=== PATIENT | female | born 1995 | race Caucasian/White ===

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

== ENCOUNTER 2017-02-24 16:15 | Emergency (ER) | payer OTHER ==
[2017-02-24 16:31] VITALS: BP 127/65
--- NOTE | 2017-02-24 16:36 | UC ---
Respiratory Complaint HPI - HPI Summary HPI Summary: 21 year old female presents with complains of sinus congestion and sore throat. - History of Current Complaint Chief Complaint: UCRespiratory Stated Complaint: COUGH Time Seen by Provider: 02/24/17 16:35 Hx Obtained From: Patient Hx Last Menstrual Period: Apr 2016 Onset/Duration: Sudden Onset Severity Initially: Moderate Severity Currently: Moderate Pain Scale Used: 0-10 Numeric - 5 Character: Cough: Nonproductive Associated Signs And Symptoms: Positive: Negative - Allergies/Home Medications Allergies/Adverse Reactions: Allergies Allergy/AdvReac Type Severity Reaction Status Date / Time No Known Allergies Allergy Verified 05/07/16 14:58 Home Medications: Home Medications Dextromethorphan-Phenylephrine [Day Time Multi-Symptom Co 10-5-325 mg] 1 cap PO 02/24/17 [History Confirmed 02/24/17] Ibuprofen [Advil] 600 mg PO 02/24/17 [History] PMH/Surg Hx/FS Hx/Imm Hx Previously Healthy: Yes Other History Of: Negative For: HIV, Hepatitis B, Hepatitis C, Anticoagulant Therapy - Surgical History Surgical History: Yes Surgery Procedure, Year, and Place: [place] teeth - Family History Known Family History: Negative: Cardiac Disease, Hypertension - Social History Alcohol Use: None Substance Use Type: None Smoking Status (MU): Light Every Day Tobacco Smoker Household Exposure Type: Cigarettes - Immunization History Most Recent Influenza Vaccination: NONE Review of Systems Constitutional: Negative Skin: Negative Eyes: Negative ENT: Sore Throat, Nasal Discharge, Sinus Congestion, Sinus Pain/Tenderness Respiratory: Negative Cardiovascular: Negative Gastrointestinal: Negative Genitourinary: Negative Motor: Negative Neurovascular: Negative Musculoskeletal: Negative Neurological: Negative Psychological: Negative All Other Systems Reviewed And Are Negative: Yes Physical Exam Triage Information Reviewed: Yes Vital Signs: Initial Vital Signs Temp 37.3 C 02/24/17 16:26 Pulse 92 02/24/17 16:26 Resp 18 02/24/17 16:26 BP 127/65 02/24/17 16:26 Pulse Ox 100 02/24/17 16:26 Vital Signs Reviewed: Yes Eye Exam: Normal ENT: Positive: Pharyngeal erythema, Nasal congestion, Nasal drainage, Sinus tenderness Dental Exam: Normal Neck exam: Normal Neck: Positive: 1 Respiratory Exam: Normal Cardiovascular Exam: Normal Abdominal Exam: Normal Musculoskeletal Exam: Normal Neurological Exam: Normal Psychological Exam: Normal Skin Exam: Normal UC Diagnostic Evaluation - Laboratory O2 Sat by Pulse Oximetry: 100 Respiratory Course/Dx - Differential Dx/Diagnosis Provider Diagnoses: allergic rhinitis. sinusitis Discharge - Discharge Plan Condition: Stable Disposition: HOME Prescriptions: Amoxicillin PO (*) [Amoxicillin 875 MG (*)] 875 mg PO BID #20 tab LoraTADine TAB(NF) [Claritin 10 MG TAB(NF)] 10 mg PO DAILY #30 tab Magic M W2 Darren/Maal/Nyst/Lido* 5 ml SWISH SPIT QID PRN #120 ml PRN Reason: Pain Patient Education Materials: Allergic Rhinitis (ED) Referrals: Mg Cordero MD [Primary Care Provider] -
== END 2017-02-24 16:51 | disposition home or self-care (01) ==
LOC: UCEAST 16:15
DX: J30.9 Allergic rhinitis, unspecified (principal); J32.9 Chronic sinusitis, unspecified; Z72.0 Tobacco use
CPT/HCPCS: 99212; G0463

== ENCOUNTER 2017-06-28 13:33 | Emergency (ER) | payer OTHER ==
[2017-06-28 13:50] VITALS: BP 125/68
--- NOTE | 2017-06-28 13:54 | UC ---
Respiratory Complaint HPI - History of Current Complaint Chief Complaint: UCGeneralIllness Stated Complaint: VOMITING Time Seen by Provider: 06/28/17 13:53 Hx Last Menstrual Period: 01/17 Pain Intensity: 5 - Allergies/Home Medications Allergies/Adverse Reactions: Allergies Allergy/AdvReac Type Severity Reaction Status Date / Time No Known Allergies Allergy Verified 06/28/17 13:50 Home Medications: Home Medications NK [No Home Medications Reported] 06/28/17 [History Confirmed 06/28/17] PMH/Surg Hx/FS Hx/Imm Hx Other History Of: Negative For: HIV, Hepatitis B, Hepatitis C, Anticoagulant Therapy - Surgical History Surgical History: Yes Surgery Procedure, Year, and Place: [place] teeth - Family History Known Family History: Negative: Cardiac Disease, Hypertension - Social History Alcohol Use: None Substance Use Type: None Smoking Status (MU): Light Every Day Tobacco Smoker Household Exposure Type: Cigarettes - Immunization History Most Recent Influenza Vaccination: NONE Physical Exam Vital Signs: Initial Vital Signs Temp 97.6 F 06/28/17 13:45 Pulse 66 06/28/17 13:45 Resp 18 06/28/17 13:45 BP 125/68 06/28/17 13:45 Pulse Ox 100 06/28/17 13:45 UC Diagnostic Evaluation - Laboratory O2 Sat by Pulse Oximetry: 100 Discharge - Discharge Plan Referrals: Denis Damon NP [Primary Care Provider] -
[2017-06-28] MEDS ORDERED: Ondansetron ODT TAB* 4 MG PO ONE (14:46)
--- NOTE | 2017-06-28 14:58 | UC ---
Nausea/Vomiting/Diarrhea HPI - HPI Summary HPI Summary: Patient accompanied by female partner, states she has been nauseated for about 6 days with nasal congestion, facial congestion and low grade fever. She states she is able to tolerate fluids and has been sipping water without vomiting, but last time she vomited was with food about 2-3 hr ago. She denies abdominal pain or dysuria. - History of Current Complaint Chief Complaint: UCGeneralIllness Stated Complaint: VOMITING Time Seen by Provider: 06/28/17 13:53 Hx Obtained From: Patient Hx Last Menstrual Period: 01/17 ?: No Onset/Duration: Gradual Onset, Lasting Days Severity Initially: Mild Severity Currently: Moderate Pain Intensity: 5 Aggravating Factor(s): Food Nausea/Vomiting Presence: Nauseated, Vomiting Vomiting Frequency: At Meal Time Nausea/Vomiting Duration: 0-12 hours Vomiting Characteristics: Retching Diarrhea Presence: No - Risk Factors Influenza Risk Factors: Negative Surgical Obstruction Risk Factor(s): Negative - Allergies/Home Medications Allergies/Adverse Reactions: Allergies Allergy/AdvReac Type Severity Reaction Status Date / Time No Known Allergies Allergy Verified 06/28/17 13:50 PMH/Surg Hx/FS Hx/Imm Hx Previously Healthy: Yes Other History Of: Negative For: HIV, Hepatitis B, Hepatitis C, Anticoagulant Therapy - Surgical History Surgical History: Yes Surgery Procedure, Year, and Place: [place] teeth - Family History Known Family History: Negative: Cardiac Disease, Hypertension - Social History Alcohol Use: None Substance Use Type: None Smoking Status (MU): Light Every Day Tobacco Smoker Household Exposure Type: Cigarettes - Immunization History Most Recent Influenza Vaccination: NONE Review of Systems Constitutional: Fever ENT: Nasal Discharge, Sinus Congestion Gastrointestinal: Vomiting, Nausea Genitourinary: Negative All Other Systems Reviewed And Are Negative: Yes Physical Exam Triage Information Reviewed: Yes Appearance: Well-Appearing, No Pain Distress, Well-Nourished Vital Signs: Initial Vital Signs Temp 97.6 F 06/28/17 13:45 Pulse 66 06/28/17 13:45 Resp 18 06/28/17 13:45 BP 125/68 06/28/17 13:45 Pulse Ox 100 06/28/17 13:45 Vital Signs Reviewed: Yes Eyes: Positive: Conjunctiva Clear ENT: Positive: Hearing grossly normal, Pharynx normal, TMs normal, Uvula midline Neck: Positive: Supple, Nontender, No Lymphadenopathy Respiratory: Positive: Chest non-tender, Lungs clear, Normal breath sounds, No respiratory distress Cardiovascular: Positive: RRR, No Murmur, Pulses Normal, Brisk Capillary Refill Abdomen Description: Positive: Nontender, No Organomegaly, Soft Bowel Sounds: Positive: Present Naus/Vom/Diarrhea Course/Dx - Course Course Of Treatment: UA shows dehydration, influenza was negative. Possibly viral syndrome, continue oral hydration with rehydrating electrolyte solutions, broths, diluted juice and avoid caffeine, dairy. introduce solids gradually as tolerated. Take zofran as needed for nausea and prilosec daily for a maximum of 14 days. F/u with PCP - Differential Dx/Diagnosis Condition At Discharge: Stable Discharge - Sign-Out/Discharge Documenting (check all that apply): Discharge/Admit/Transfer - Discharge Plan Condition: Stable Disposition: HOME Prescriptions: Omeprazole CAP* [Prilosec CAP* 20 MG] 20 mg PO DAILY #14 cap. Ondansetron ODT TAB* [Zofran 4 MG Odt TAB*] 4 mg PO Q6H PRN #20 tab.odt PRN Reason: Nausea Patient Education Materials: Ondansetron (By mouth), Dehydration (ED), Gastroenteritis (ED) Referrals: Denis Damon NP [Primary Care Provider] - - Billing Disposition and Condition Condition: STABLE Disposition: HOME
== END 2017-06-28 15:03 | disposition home or self-care (01) ==
LOC: UCEAST 13:33
DX: R50.9 Fever, unspecified (principal); R09.81 Nasal congestion; R11.2 Nausea with vomiting, unspecified; F17.210 Nicotine dependence, cigarettes, uncomplicated; E86.0 Dehydration
CPT/HCPCS: 81003; 87502; 99212; A9270-GY; G0463

== ENCOUNTER 2018-01-24 21:25 | Emergency (ER) | payer OTHER ==
--- NOTE | 2018-01-24 22:06 | ED ---
Upper Extremity Pain - HPI Summary HPI Summary: The patient is a 22 y/o female presenting to [facility] c/o L fifth finger pain since 2 days ago worsened today. She accidentally dropped a shelf on the affected finger. She notes pain, swelling and difficulty using the same.She notes pain rated 7/10 in severity. Home Medications Medication Instructions Recorded Confirmed Type Omeprazole CAP* [Prilosec CAP* 20 20 mg PO DAILY #14 cap.dr 06/28/17 Rx MG] Ondansetron ODT TAB* [Zofran 4 MG 4 mg PO Q6H PRN #20 tab.odt 06/28/17 Rx Odt TAB*] - History of Current Complaint Chief Complaint: EDExtremityUpper Stated Complaint: LEFT HAND INJURY Time Seen by Provider: 01/24/18 21:55 Hx Obtained From: Patient Hx Last Menstrual Period: 01/17 Mechanism Of Injury: Blunt Trauma Onset/Duration: Started Days Ago - 2 days, Still Present Timing: Constant Severity Initially: Moderate Severity Currently: Moderate Pain Location: Finger - L fifth finger Aggravating Factor(s): Movement Alleviating Factor(s): Nothing - Allergies/Home Medications Allergies/Adverse Reactions: Allergies Allergy/AdvReac Type Severity Reaction Status Date / Time No Known Allergies Allergy Verified 01/24/18 21:35 PMH/Surg Hx/FS Hx/Imm Hx Previously Healthy: No Endocrine/Hematology History: Denies: Hx Anticoagulant Therapy, Hx Diabetes, Hx Thyroid Disease Cardiovascular History: Denies: Hx Congestive Heart Failure, Hx Deep Vein Thrombosis, Hx Hypertension , Hx Myocardial Infarction, Hx Pacemaker/ICD Respiratory History: Denies: Hx Asthma, Hx Chronic Obstructive Pulmonary Disease (COPD), Hx Lung Cancer GI History: Denies: Hx Gall Bladder Disease, Hx Gastrointestinal Bleed, Hx Ulcer, Hx Urosepsis History: Denies: Hx Kidney Stones, Hx Renal Disease Sensory History: Denies: Hx Hearing Aid Neurological History: Reports: Hx Seizures - Febrile seizures as a child. Denies: Hx Dementia, Hx Migraine, Hx Transient Ischemic Attacks (TIA) Psychiatric History: Denies: Hx Anxiety, Hx Depression, Hx Panic Disorder, Hx Schizophrenia, Hx Bipolar Disorder - Cancer History Cancer Type, Location and Year: None reported - Surgical History Surgery Procedure, Year, and Place: [place] teeth Infectious Disease History: No Infectious Disease History: Denies: Hx Hepatitis, Hx Human Immunodeficiency Virus (HIV), Traveled Outside the [place] in Last 30 Days - Family History Known Family History: Negative: Cardiac Disease, Hypertension - Social History Occupation: Employed Full-time Lives: Alone Alcohol Use: None Substance Use Type: Reports: None Smoking Status (MU): Light Every Day Tobacco Smoker Review of Systems Positive: no symptoms reported Musculoskeletal: Other - Positive: L fifth finger pain, swelling and difficulty moving the finger All Other Systems Reviewed And Are Negative: Yes Physical Exam - Summary Physical Exam Summary: Appearance: Well-appearing, Well-nourished, lying in bed comfortably Skin: Warm, dry, no obvious rash Eyes: sclera anicteric, no conjunctival pallor ENT: mucous membranes moist, pharynx appears normal Neck: Supple, nontender Respiratory: Clear to auscultation, no signs of respiratory distress Cardiovascular: Normal S1, S2. No murmurs. Normal distal pulses in tibial and radial bilaterally. Abdomen: Soft, nontender, normal active bowel sounds present Musculoskeletal: L fifth finger is mildly tender, No focal tenderness or deformation with flexion of the PIP and DIP joints Neurological: A&Ox3, awake and alert, mentation is normal, speech is fluent and appropriate Psychiatric: affect is normal, does not appear anxious or depressed Triage Information Reviewed: Yes Vital Signs On Initial Exam: Initial Vitals Temp Pulse Resp BP Pulse Ox 98.4 F 109 16 131/74 99 01/24/18 21:32 01/24/18 21:32 01/24/18 21:32 01/24/18 21:32 01/24/18 21:32 Vital Signs Reviewed: Yes Procedures - Splinting Left 5th Digit Location: Weeks Pre-Made Type: aluminum/foam in neutral position Pre-Proc Neuro Vasc Exam: normal Post-Proc Neuro Vasc Exam: normal Diagnostics - Vital Signs Vital Signs Temp Pulse Resp BP Pulse Ox 01/24/18 21:32 98.4 F 109 16 131/74 99 - Laboratory Lab Statement: Any lab studies that have been ordered have been reviewed, and results considered in the medical decision making process. - Radiology L hand X-ray Radiology Interpretation Completed By: ED Physician - IMPRESSION: Negative Course/Dx - Course Course Of Treatment: A 22 year-old M/F presents to the ED with a CC of L fifth finger pain since 2 days ago worsened today. She accidentally dropped a shelf on it. She notes pain, swelling and difficulty using the affected finger. A physical exam revealed that the affected finger is mildly tender. There is no focal tenderness or deformation with flexion of the PIP and DIP joints. A L hand X-ray is unremarkable. Patient will be discharged with a final Dx of finger sprain. Pt is agreeable with this plan. Allergies noted. - Diagnoses Provider Diagnoses: Sprain of finger, left Discharge - Sign-Out/Discharge Documenting (check all that apply): Patient Departure - DC - Discharge Plan Condition: Good Disposition: HOME Patient Education Materials: Splint Care (ED), Finger Sprain (ED) Referrals: Jono Loyd MD [Medical Doctor] - - Billing Disposition and Condition Condition: GOOD Disposition: Home - Attestation Statements Document Initiated by Sb: Yes Documenting Scribe: Akanksha Albarran Provider For Whom Sb is Documenting (Include Credential): Dr. Kulwinder Perez MD Scribe Attestation: Akanksha Patiño scribed for Dr. Kulwinder Perez MD on 01/25/18 at 0047. Scribe Documentation Reviewed: Yes Provider Attestation: The documentation as recorded by the Akanksha sanders accurately reflects the service I personally performed and the decisions made by , Dr. Kulwinder Perez MD
[2018-01-24 22:18] VITALS: BP 130/66
== END 2018-01-24 22:17 | disposition home or self-care (01) ==
LOC: ED 21:25
DX: S63.617A Unspecified sprain of left little finger, initial encounter (principal); W20.8XXA Other cause of strike by thrown, projected or falling object, initial encounter; Y92.9 Unspecified place or not applicable; Y99.0 Civilian activity done for income or pay; F17.200 Nicotine dependence, unspecified, uncomplicated
CPT/HCPCS: 73140; 99282

== ENCOUNTER 2019-02-02 09:04 | Emergency (ER) | payer OTHER ==
[2019-02-02 09:27] VITALS: BP 137/74
[2019-02-02] MEDS ORDERED: Ibuprofen TAB* 600 MG PO ONE (09:32)
--- NOTE | 2019-02-02 11:03 | ED ---
Upper Extremity Pain - HPI Summary HPI Summary: This patient is a 23-year-old female who is otherwise healthy presenting to the ED with a right hand injury. Patient states she was angry yesterday and punched a wall, injuring her fourth and fifth metacarpal. She endorses some bruising to the area with a small abrasion, but denies any other limitations with range of motion. Still able to flex and extend at the wrist as well as at the MCP joints. - History of Current Complaint Chief Complaint: EDExtremityUpper Stated Complaint: RT WRIST INJURY PER PT Time Seen by Provider: 02/02/19 09:27 Hx Obtained From: Patient Hx Last Menstrual Period: 01/17 Mechanism Of Injury: Blunt Trauma Onset/Duration: Started Hours Ago Timing: Constant Severity Initially: Moderate Severity Currently: Moderate Character: Aching Aggravating Factor(s): Nothing Alleviating Factor(s): Rest, Ice Associated Signs & Symptoms: Positive: Bruising - Allergies/Home Medications Allergies/Adverse Reactions: Allergies Allergy/AdvReac Type Severity Reaction Status Date / Time No Known Allergies Allergy Verified 02/02/19 09:08 PMH/Surg Hx/FS Hx/Imm Hx Previously Healthy: Yes Endocrine/Hematology History: Denies: Hx Anticoagulant Therapy, Hx Diabetes, Hx Thyroid Disease Cardiovascular History: Denies: Hx Congestive Heart Failure, Hx Deep Vein Thrombosis, Hx Hypertension , Hx Myocardial Infarction, Hx Pacemaker/ICD Respiratory History: Denies: Hx Asthma, Hx Chronic Obstructive Pulmonary Disease (COPD), Hx Lung Cancer GI History: Denies: Hx Gall Bladder Disease, Hx Gastrointestinal Bleed, Hx Ulcer, Hx Urosepsis History: Denies: Hx Kidney Stones, Hx Renal Disease Sensory History: Denies: Hx Hearing Aid Neurological History: Reports: Hx Seizures - Febrile seizures as a child. Denies: Hx Dementia, Hx Migraine, Hx Transient Ischemic Attacks (TIA) Psychiatric History: Denies: Hx Anxiety, Hx Depression, Hx Panic Disorder, Hx Schizophrenia, Hx Bipolar Disorder - Cancer History Cancer Type, Location and Year: None reported - Surgical History Surgery Procedure, Year, and Place: [place] teeth - Immunization History Hx Pertussis Vaccination: No Immunizations Up to Date: Yes Infectious Disease History: No Infectious Disease History: Denies: Hx Hepatitis, Hx Human Immunodeficiency Virus (HIV), Traveled Outside the [place] in Last 30 Days - Family History Known Family History: Negative: Cardiac Disease, Hypertension - Social History Occupation: Unemployed, Employed Full-time Lives: With Family Alcohol Use: None Hx Substance Use: No Substance Use Type: Reports: None Hx Tobacco Use: Yes Smoking Status (MU): Light Every Day Tobacco Smoker Review of Systems Negative: Fever, Chills, Fatigue, Skin Diaphoresis Negative: Palpitations, Chest Pain Negative: Shortness Of Breath, Cough Genitourinary: Negative Positive: no symptoms reported, see HPI Positive: Arthralgia. Negative: Myalgia Positive: Bruising Neurological: Negative All Other Systems Reviewed And Are Negative: Yes Physical Exam Triage Information Reviewed: Yes Vital Signs On Initial Exam: Initial Vitals Temp Pulse Resp BP Pulse Ox 98.7 F 67 14 137/74 99 02/02/19 09:06 02/02/19 09:06 02/02/19 09:06 02/02/19 09:06 02/02/19 09:06 Vital Signs Reviewed: Yes Appearance: Positive: Well-Appearing, Well-Nourished Skin: Positive: Warm, Skin Color Reflects Adequate Perfusion Head/Face: Positive: Normal Head/Face Inspection Eyes: Positive: EOMI, Conjunctiva Clear Neck: Positive: Supple, No Lymphadenopathy Respiratory/Lung Sounds: Positive: Clear to Auscultation, Breath Sounds Present Cardiovascular: Positive: RRR, Pulses are Symmetrical in both Upper and Lower Extremities Musculoskeletal: Positive: Pain @ - right hand pain and ecchymosis Neurological: Positive: Speech Normal Psychiatric: Positive: Affect/Mood Appropriate Procedures - Sedation Patient Received Moderate/Deep Sedation with Procedure: No Diagnostics - Vital Signs Vital Signs Temp Pulse Resp BP Pulse Ox 02/02/19 09:06 98.7 F 67 14 137/74 99 - Laboratory Lab Statement: Any lab studies that have been ordered have been reviewed, and results considered in the medical decision making process. Course/Dx - Course Course Of Treatment: During his course of treatment, the patient is evaluated for right hand pain. She is endorsing pain over the fourth and fifth metacarpal with ecchymosis overlying. Denies any pain to the wrist or upper extremity otherwise. Denies any pain to the fingertips. X-ray obtained which shows no acute fracture. Patient is given ibuprofen with good relief. She will ice the area and will follow up as needed. She is diagnosed with hand contusion. - Diagnoses Provider Diagnoses: Hand contusion Discharge ED - Sign-Out/Discharge Documenting (check all that apply): Patient Departure - Discharge Plan Condition: Stable Disposition: HOME Patient Education Materials: Contusion in Adults (ED) Referrals: Nicole Clark MD [Primary Care Provider] - Additional Instructions: Ibuprofen 600mg three times daily - Billing Disposition and Condition Condition: STABLE Disposition: Home
== END 2019-02-02 11:30 | disposition home or self-care (01) ==
LOC: ED 09:04
DX: S60.221A Contusion of right hand, initial encounter (principal); S60.511A Abrasion of right hand, initial encounter; W22.09XA Striking against other stationary object, initial encounter; Y92.9 Unspecified place or not applicable; F17.200 Nicotine dependence, unspecified, uncomplicated
CPT/HCPCS: 99281

== ENCOUNTER 2019-05-21 15:35 | Emergency (ER) | payer OTHER ==
--- NOTE | 2019-05-21 16:43 | UC ---
Respiratory Complaint HPI - History of Current Complaint Chief Complaint: UCRespiratory Stated Complaint: COUGH/CHEST CONGESTION Time Seen by Provider: 05/21/19 16:29 Hx Obtained From: Patient Hx Last Menstrual Period: 01/17 - Allergies/Home Medications Allergies/Adverse Reactions: Allergies Allergy/AdvReac Type Severity Reaction Status Date / Time No Known Allergies Allergy Verified 02/02/19 09:08 Home Medications: Home Medications Omeprazole CAP (NF) [Prilosec CAP* 20 MG] 20 mg PO DAILY #14 cap.dr 06/28/17 [Rx ] Ondansetron ODT TAB* [Zofran 4 MG Odt TAB*] 4 mg PO Q6H PRN #20 tab.odt [Rx] PMH/Surg Hx/FS Hx/Imm Hx Other History Of: Negative For: HIV, Hepatitis B, Hepatitis C, Anticoagulant Therapy - Surgical History Surgical History: Yes Surgery Procedure, Year, and Place: [place] teeth - Family History Known Family History: Negative: Cardiac Disease, Hypertension - Social History Alcohol Use: None Substance Use Type: None Smoking Status (MU): Light Every Day Tobacco Smoker Household Exposure Type: Cigarettes - Immunization History Most Recent Influenza Vaccination: NONE Discharge ED - Sign-Out/Discharge Documenting (check all that apply): Patient Departure All imaging exams completed and their final reports reviewed: No Studies - Discharge Plan Condition: Good Disposition: HOME Patient Education Materials: Upper Respiratory Infection (ED) Forms: COVID-19 Tested & Isolation Referrals: Nicole Clark MD [Primary Care Provider] - Additional Instructions: see patient instructions - Billing Disposition and Condition Condition: GOOD Disposition: Home
== END 2019-05-21 17:22 | disposition left against medical advice (07) ==
LOC: UCEAST 15:35
DX: R09.89 Other specified symptoms and signs involving the circulatory and respiratory systems (principal); Z53.21 Procedure and treatment not carried out due to patient leaving prior to being seen by health care provider